=== PATIENT | male | born 1975 | race Caucasian/White ===

== ENCOUNTER 2020-12-02 03:44 | Observation (INO) ==
[2020-12-02] MEDS ORDERED: KETOROLAC TROMETHAMINE 15 MG/ML VIAL IV STA (04:04)
[2020-12-02] MEDS ORDERED: ONDANSETRON INJ 2 MG/ML 2 ML VIAL IV STA (04:04)
[2020-12-02] MEDS ORDERED: SODIUM CHLORIDE 0.9% 1000ML 1,000 ML IV ONE (04:04)
--- NOTE | 2020-12-02 04:13 | Emergency Department Note ---
History of Present Illness General Chief complaint: Abdominal Pain Stated complaint: SEVERE ABDOMINAL PAIN,DIARRHEA,VOMITING Time Seen by Provider: 12/02/20 03:54 Source: patient Mode of arrival: ambulatory Limitations: no limitations History of Present Illness Maximum Pain Intensity: 8 This patient is a 45-year-old male who presents to the emergency department for evaluation of abdominal pain. Patient states that 2 days ago, he developed some crampy, generalized abdominal pain. He developed some diarrhea the next day as well as some nausea. He states that yesterday, he felt okay throughout the day but overnight developed more abdominal pain. He has been very nauseous and had 2 episodes of vomiting this evening. He reports he feels an urgency to have a bowel movement, but is unable to have a bowel movement. He rates his discomfort an 8/10. He states the pain is crampy in nature. He has not taken any medication for the pain. He denies any urinary symptoms. Past Med/Surg History Medical History No significant past medical history Surgical History History of brain surgery removal of meningioma approx 2013 Social History Smoking Status: Never smoker Preferred Language: Citizen Of [place] Feels Safe at Home: Yes Review of Systems A total of 10 systems reviewed and were otherwise negative Physical Exam Vital Signs Vital Signs - 24 hr 12/02/20 03:51 12/02/20 03:58 12/02/20 04:04 Temperature 35.8 C L Temperature Source Temporal Artery Scan Pulse Rate 67 62 Pulse Rate from SpO2 Sensor Respiratory Rate 18 16 Respiratory Depth Normal Blood Pressure 129/81 127/85 Blood Pressure Mean 97 99 Pulse Oximetry 98 98 Oxygen Delivery Method Room Air Room Air Sepsis Recent Fever Within 48 Hours No Sepsis New/Unexplained Change in Mental Status N/A Sepsis Action Taken by Nursing No Action Required 12/02/20 04:33 12/02/20 04:40 12/02/20 04:50 Temperature Temperature Source Pulse Rate 60 67 63 Pulse Rate from SpO2 Sensor 64 Respiratory Rate 13 19 15 Respiratory Depth Blood Pressure Blood Pressure Mean Pulse Oximetry 95 Oxygen Delivery Method Sepsis Recent Fever Within 48 Hours Sepsis New/Unexplained Change in Mental Status Sepsis Action Taken by Nursing 12/02/20 05:00 12/02/20 05:10 12/02/20 05:38 Temperature Temperature Source Pulse Rate 69 77 86 Pulse Rate from SpO2 Sensor 69 76 Respiratory Rate 15 16 11 L Respiratory Depth Blood Pressure Blood Pressure Mean Pulse Oximetry 94 97 Oxygen Delivery Method Sepsis Recent Fever Within 48 Hours Sepsis New/Unexplained Change in Mental Status Sepsis Action Taken by Nursing 12/02/20 05:40 12/02/20 05:45 12/02/20 05:50 Temperature Temperature Source Pulse Rate 81 69 Pulse Rate from SpO2 Sensor 81 70 Respiratory Rate 15 15 Respiratory Depth Blood Pressure 122/78 Blood Pressure Mean 92 Pulse Oximetry 98 96 Oxygen Delivery Method Room Air Sepsis Recent Fever Within 48 Hours Sepsis New/Unexplained Change in Mental Status Sepsis Action Taken by Nursing 12/02/20 06:00 12/02/20 06:30 Temperature Temperature Source Pulse Rate 73 67 Pulse Rate from SpO2 Sensor 74 68 Respiratory Rate 18 14 Respiratory Depth Blood Pressure 118/77 Blood Pressure Mean 90 Pulse Oximetry 98 96 Oxygen Delivery Method Sepsis Recent Fever Within 48 Hours Sepsis New/Unexplained Change in Mental Status Sepsis Action Taken by Nursing VITALS: Vitals are noted on the nurse's note and reviewed by myself. Vital sig ns stable. GENERAL: This is a 45-year-old male, in no acute distress, well-developed well-nourished. SKIN: The skin was without rashes. EARS: External auditory canals clear, tympanic membranes pearly tello without erythema or effusion bilaterally. EYES: Pupils equal round and reactive to light and accommodation. MOUTH: Mucous membranes moist. Tonsils are not enlarged. Pharynx without erythema or exudate. NECK: Supple without nuchal rigidity. No lymphadenopathy. HEART: Regular rate and rhythm without murmurs gallops or rubs. LUNGS: Clear to auscultation bilaterally without wheezes, rales or rhonchi. ABDOMEN: Positive bowel sounds x 4. Abdomen is soft. There is moderate tenderness to palpation in the right upper quadrant and right lower quadrants. No guarding or rebound tenderness. NEURO: Patient was alert and oriented to person place and time. Course Administered Medications Discontinued Medications Sodium Chloride (Nss 1000ml) 1,000 mls @ 999 mls/hr IV .Q1H1M ONE Stop: 12/02/20 05:04 Last Infusion: 12/02/20 05:45 Dose: 0 mls/hr Documented by: [id number] Admin: 12/02/20 04:35 Dose: 999 mls/hr Documented by: [id number] Ioversol (Optiray 320 100ml) 94 ml IV ONCE ONE Stop: 12/02/20 04:55 Last Admin: 12/02/20 04:54 Dose: 94 ml Documented by: [id number] Ketorolac Tromethamine (Ketorolac Tromethamine 15 Mg/Ml Vial) 15 mg IV NOW STA Stop: 12/02/20 04:05 Last Admin: 12/02/20 04:10 Dose: 15 mg Documented by: [id number] Morphine Sulfate (Morphine Sulfate 10 Mg/Ml Carp/Vial) 6 mg IV NOW STA Stop: 12/02/20 04:43 Last Admin: 12/02/20 04:48 Dose: 6 mg Documented by: [id number] Ondansetron HCl (Ondansetron Inj 2 Mg/Ml 2 Ml Vial) 4 mg IV NOW STA Stop: 12/02/20 04:05 Last Admin: 12/02/20 04:24 Dose: 4 mg Documented by: [id number] Medical Decision Making Differential Diagnosis Appendicitis, testicular torsion, infections, diverticulitis, UTI, obstruction, mesenteric ischemia, aortic pathology, inflammatory bowel disease, renal colic, PUD, pancreatitis, biliary pathology, hernia, volvulus, constipation, as well as other pathologies. Home Medications Current Medication List: was personally reviewed by me Laboratory Data Attestation: I reviewed the patient's lab results. Result diagrams: 12/02/20 04:20 12/02/20 04:20 Lab Results 12/02/20 12/02/20 12/02/20 Range/Units 04:20 04:20 04:20 WBC 12.83 H (4.8-10.8) K/uL RBC 4.82 (4.7-6.1) M/uL Hgb 14.8 (14.0-18.0) g/dL Hct 42.9 (42-52) % MCV 89.0 (80-100) fL MCH 30.7 (25-34) pg MCHC 34.5 (32-36) g/dL RDW Std Deviation 44.6 (36.4-46.3) fL RDW Coeff of Adrien 13.6 (11.5-14.5) % Plt Count 289 (130-400) K/uL MPV 10.7 H (7.4-10.4) fL Immature Gran % (Auto) 0.2 % Neut % (Auto) 83.1 % Lymph % (Auto) 11.5 % [place] % (Auto) 4.1 % Eos % (Auto) 0.9 % Baso % (Auto) 0.2 % Neut # (Auto) 10.68 H (1.4-6.5) K/uL Lymph # (Auto) 1.48 (1.2-3.4) K/uL [place] # (Auto) 0.52 (0.11-0.59) K/uL Eos # (Auto) 0.11 (0-0.5) K/uL Baso # (Auto) 0.02 (0-0.2) K/uL Immature Gran # (Auto) 0.02 (0.00-0.02) K/uL Sodium 142 (136-145) mmol/L Potassium 3.7 (3.5-5.1) mmol/L Chloride 109 H (98-107) mmol/L Carbon Dioxide 25 (21-32) mmol/L Anion Gap 8.0 (3-11) BUN 11 (7-18) mg/dl Creatinine 0.88 (0.6-1.4) mg/dl Est Cr Clr Drug Dosing 101.2 ml/min Est GFR ( Amer) 121.9 ml/min Est GFR (Non-Af Amer) 105.2 ml/min BUN/Creatinine Ratio 12.8 (10-20) Glucose 134 H (70-99) mg/dl Calcium 8.8 (8.5-10.1) mg/dl Total Bilirubin 0.5 (0.2-1) mg/dl AST 23 (15-37) U/L ALT 56 (12-78) U/L Alkaline Phosphatase 101 (45-117) U/L Total Protein 7.8 (6.4-8.2) gm/dl Albumin 4.1 (3.4-5.0) gm/dl Globulin 3.7 (2.5-4.0) gm/dl Albumin/Globulin Ratio 1.1 (0.9-2) Lipase 176 (73-393) U/L Urine Color Yellow Urine Appearance Clear (Clear) Urine pH 5.5 (4.5-7.5) Ur Specific [place] 1.022 (1.000-1.030) Urine Protein 1+ H (Negative) Urine Glucose (UA) Negative (Negative) Urine Ketones Negative (Negative) Urine Blood Negative (Negative) Urine Nitrite Negative (Negative) Urine Bilirubin Negative (Negative) Urine Urobilinogen Negative (Negative) Ur Leukocyte Esterase Negative (Negative) Urine WBC (Auto) 1-5 (0-5) /hpf Urine RBC (Auto) 0-4 (0-4) /hpf U Hyaline Cast (Auto) 1-5 (0-5) /lpf U Epithel Cells (Auto) 0-5 (0-5) /lpf Urine Bacteria (Auto) Negative (Negative) Imaging Data Radiologist's Impression: Abdomen/Pelvis CT 12/02/20 04:14 CT OF THE ABDOMEN AND PELVIS WITH CONTRAST CLINICAL HISTORY: right sided abdominal pain, vomiting COMPARISON STUDY: None. TECHNIQUE: Following IV administration of 94 mL of Optiray, axial images of the abdomen and pelvis were obtained from the lung bases to the proximal femurs. Im ages were reviewed in the axial, sagittal, and coronal planes. IV contrast was administered without complication. Automated exposure control was utilized for the study. A dose lowering technique was utilized adhering to the principles of ALARA. CT DOSE: 472.31 mGycm FINDINGS: Lung bases are unremarkable. No pneumatosis, free air or portal venous gas is present. Liver, spleen, adrenal glands and pancreas are unremarkable. There is no biliary or pancreatic ductal dilatation. Several bilateral renal lesions measuring up to 1.2 cm are difficult to characterize given their small size but. These likely reflect cysts. There is no evidence for a bowel obstruction. The appendix is dilated, measuring 1 cm in caliber. There is minimal periappendiceal infiltration. No free air or abscess. There may be an appendicolith at the base of the appendix. No evidence for a bowel obstruction. Major vasculature is patent. There is no lymphadenopathy. No acute fracture or suspicious lesion is identified within the visualized skeletal structures. IMPRESSION: Findings consistent with acute appendicitis. No free air or abscess. ACT 112: Negative or not required by law. Electronically signed by: Bhavin Weir M.D. 12/02/2020 6:46 AM MDM Narrative Continuous project superintendent: Order was placed for continuous project superintendent. Patient was placed on the project superintendent. Patient was noted to be in normal sinus rhythm at an initial rate of 67 bpm. The patient is a 45-year-old male who presents today complaining of abdominal pain. Patient is very tender in the right lower quadrant on exam. Labs revealed a leukocytosis of 12,000. CT of the abdomen/pelvis was performed and showed findings consistent with acute appendicitis. Patient was treated with Toradol, morphine, Zofran and fluids and felt much better after this treatment. General surgery was consulted and will evaluate the patient for further care. Impression & Plan Acute appendicitis Discharge Plan Visit Data Chief Complaint: Abdominal Pain Stated Complaint: SEVERE ABDOMINAL PAIN,DIARRHEA,VOMITING ED Provider: Keira Abreu ED Midlevel Provider: Barbra Newton Discharge Problem: Acute appendicitis Forms Stand Alone Forms: [facility] Referrals Referrals: PCP,NO [Physician] -
[2020-12-02 04:34] LABS: Basophils # (auto) 0.02 K/uL (0-0.2); Basophils % (auto) 0.2 %; Eosinophils # (auto) 0.11 K/uL (0-0.5); Eosinophils % (auto) 0.9 %; Hematocrit (blood only) 42.9 % (42-52); Hemoglobin 14.8 g/dL (14.0-18.0); Immature Granulocytes # (auto) 0.02 K/uL (0.00-0.02); Immature Granulocytes % (auto) 0.2 %; Lymphocytes # (auto) 1.48 K/uL (1.2-3.4); Lymphocytes % (auto) 11.5 %; Mean Corpuscular Hemoglobin 30.7 pg (25-34); Mean Corpuscular Hgb Conc 34.5 g/dL (32-36); Mean Platelet Volume 10.7 fL (7.4-10.4); Monocytes # (auto) 0.52 K/uL (0.11-0.59); Monocytes % (auto) 4.1 %; Neutrophils # (auto) 10.68 K/uL (1.4-6.5); Neutrophils % (auto) 83.1 %; Platelet Count 289 K/uL (130-400); RDW Coefficient of Variation 13.6 % (11.5-14.5); RDW Standard Deviation 44.6 fL (36.4-46.3); Red Blood Count 4.82 M/uL (4.7-6.1); White Blood Count 12.83 K/uL (4.8-10.8)
[2020-12-02 04:38] LABS: Appearance Urine Clear (Clear); Bacteria Urine Automated Negative (Negative); Bilirubin Urine Negative (Negative); Blood Urine Negative (Negative); Color Urine Yellow; Epithelial Cell Urine Auto 0-5 /lpf (0-5); Glucose Urine UA Negative (Negative); Ketones Urine Negative (Negative); Leukocyte Esterase Urine Negative (Negative); Nitrite Urine Negative (Negative); Protein Urine 1+ (Negative); RBC Urine Automated 0-4 /hpf (0-4); Specific Gravity Urine 1.022 (1.000-1.030); Urobilinogen Urine Negative (Negative); pH Urine 5.5 (4.5-7.5)
[2020-12-02] MEDS ORDERED: MoRPHine SULFATE 10 MG/ML CARP/VIAL IV STA (04:42)
[2020-12-02 04:51] LABS: Albumin Level 4.1 gm/dl (3.4-5.0); BUN Creatinine Ratio 12.8 (10-20); Calcium 8.8 mg/dl (8.5-10.1); Creatinine Clr Calc Pharmacy 101.2 ml/min; Est GFR (African American) 121.9 ml/min; Est GFR (Non-African American) 105.2 ml/min; Potassium 3.7 mmol/L (3.5-5.1)
[2020-12-02 04:54] LABS: Albumin Globulin Ratio 1.1 (0.9-2); Bilirubin,Total 0.5 mg/dl (0.2-1); Globulin 3.7 gm/dl (2.5-4.0); Total Protein 7.8 gm/dl (6.4-8.2)
[2020-12-02] MEDS ORDERED: OPTIRAY 320 100ml IV ONE (04:54)
--- NOTE | 2020-12-02 06:47 | CT Scan Report ---
CT OF THE ABDOMEN AND PELVIS WITH CONTRAST CLINICAL HISTORY: right sided abdominal pain, vomiting COMPARISON STUDY: None. TECHNIQUE: Following IV administration of 94 mL of Optiray, axial images of the abdomen and pelvis we re obtained from the lung bases to the proximal femurs. Images were reviewed in the axial, sagittal, and coronal planes. IV contrast was administered without complication. Automated exposure control wa s utilized for the study. A dose lowering technique was utilized adhering to the principles of ALARA . CT DOSE: 472.31 mGycm FINDINGS: Lung bases are unremarkable. No pneumatosis, free air or portal venous gas is present. Live r, spleen, adrenal glands and pancreas are unremarkable. There is no biliary or pancreatic ductal dil atation. Several bilateral renal lesions measuring up to 1.2 cm are difficult to characterize given t heir small size but. These likely reflect cysts. There is no evidence for a bowel obstruction. The ap pendix is dilated, measuring 1 cm in caliber. There is minimal periappendiceal infiltration. No free air or abscess. There may be an appendicolith at the base of the appendix. No evidence for a bowel ob struction. Major vasculature is patent. There is no lymphadenopathy. No acute fracture or suspicious lesion is identified within the visualized skeletal structures. IMPRESSION: Findings consistent with acute appendicitis. No free air or abscess. ACT 112: Negative or not required by law. Electronically signed by: Bhavin Weir M.D. 12/02/2020 6:46 AM
[2020-12-02] MEDS ORDERED: MoRPHine SULFATE 4 MG/ML 1 ML CARP\\VIAL IV PRN (07:31)
--- NOTE | 2020-12-02 09:01 | History & Physical Report ---
Date of Service December 02, 2020 Assessment & Plan (1) Acute appendicitis: Plan: 45 yea-old make with 2 day history of abdominal pain with diarrhea and nausea and vomiting. CT scan showing dilated appendix at 1 cm with possible appendicolith at base. Mild leukocytosis of 12k. Abdomen is soft. Plan: Dr. Ledesma discussed CT scan findings with patient and recommends laparoscopic appendectomy. Patient informed of procedure, risks, and recovery and informed consent obtained Keep NPO 2 gms Ancef preop will stay overnight in observation and likely home tomorrow morning Dr. Ledesma has seen and examined pt, agrees with above. History of Present Illness Chief Complaint: Abdominal pain Primary Care Provider: Melecio Weller MD Lewis is a pleasant 45 year-old male who presented to emergency room due to abdominal pain with associated nausea and vomiting. Pain started Wednesday evening. States he had nausea and vomiting last night. Denies of any similar type of abdominal pain in the past. Denies of any fever, chills, chest pain, shortness of breath, difficulty breathing. Had some diarrhea on Wednesday evening as well. Pain improved yesterday during day but increased last evening. ER work-up included labs which showed mild leukocytosis of 12k and CT scan of abdomen and pelvis showing dilated appendix at 1 cm with mild periappendiceal inflammation and possible appendicolith at the base of the appendix. Past Med/Surg History Medical History No significant past medical history Surgical History History of brain surgery removal of meningioma approx 2013 Social History Smoking Status: Never smoker Preferred Language: Bhutanese Feels Safe at Home: Yes Review of Systems Review of Systems: All systems reviewed & are unremarkable except as noted in HPI & below Physical Exam Constitutional: WD/WN, vitals as above Respiratory: normal respiratory effort; no respiratory distress and no labored breathing Cardiovascular: Rate/Rhythm: regular rate and regular rhythm Gastrointestinal (Abdomen): Inspection/Auscultation: abdomen normal to inspection; abdomen not distended Percussion/Palpation: + abdomen tender (right side of abdomen) and abdomen soft; no guarding and abdomen not rigid Skin: no rashes, warm and dry Psychiatric: A+Ox3, euthymic affect Results & Data Results & Data ([facility]) Vital Signs (Past 12 Hours) Vital Signs Temp Pulse Pulse Resp BP BP Pulse Ox 12/02/20 07:00 70 18 121/74 97 12/02/20 06:30 67 14 118/77 96 12/02/20 06:00 73 18 98 12/02/20 05:50 69 15 122/78 96 12/02/20 05:40 81 15 98 12/02/20 05:38 86 11 L 12/02/20 05:10 77 16 97 12/02/20 05:00 69 15 94 12/02/20 04:50 63 15 95 12/02/20 04:40 67 19 12/02/20 04:33 60 13 12/02/20 04:04 98 12/02/20 03:58 62 16 127/85 12/02/20 03:51 35.8 C L 67 18 129/81 98 Laboratory Results 12/02/20 12/02/20 12/02/20 Range/Units 07:20 07:20 04:20 WBC (4.8-10.8) K/uL RBC (4.7-6.1) M/uL Hgb (14.0-18.0) g/dL Hct (42-52) % MCV (80-100) fL MCH (25-34) pg MCHC (32-36) g/dL RDW Std Deviation (36.4-46.3) fL RDW Coeff of Adrien (11.5-14.5) % Plt Count (130-400) K/uL MPV (7.4-10.4) fL Immature Gran % (Auto) % Neut % (Auto) % Lymph % (Auto) % [place] % (Auto) % Eos % (Auto) % Baso % (Auto) % Neut # (Auto) (1.4-6.5) K/uL Lymph # (Auto) (1.2-3.4) K/uL [place] # (Auto) (0.11-0.59) K/uL Eos # (Auto) (0-0.5) K/uL Baso # (Auto) (0-0.2) K/uL Immature Gran # (Auto) (0.00-0.02) K/uL Sodium (136-145) mmol/L Potassium (3.5-5.1) mmol/L Chloride (98-107) mmol/L Carbon Dioxide (21-32) mmol/L Anion Gap (3-11) BUN (7-18) mg/dl Creatinine (0.6-1.4) mg/dl Est Cr Clr Drug Dosing ml/min Est GFR ( Amer) ml/min Est GFR (Non-Af Amer) ml/min BUN/Creatinine Ratio (10-20) Glucose (70-99) mg/dl Calcium (8.5-10.1) mg/dl Total Bilirubin (0.2-1) mg/dl AST (15-37) U/L ALT (12-78) U/L Alkaline Phosphatase (45-117) U/L Total Protein (6.4-8.2) gm/dl Albumin (3.4-5.0) gm/dl Globulin (2.5-4.0) gm/dl Albumin/Globulin Ratio (0.9-2) Lipase (73-393) U/L Urine Color Yellow Urine Appearance Clear (Clear) Urine pH 5.5 (4.5-7.5) Ur Specific [place] 1.022 (1.000-1.030) Urine Protein 1+ H (Negative) Urine Glucose (UA) Negative (Negative) Urine Ketones Negative (Negative) Urine Blood Negative (Negative) Urine Nitrite Negative (Negative) Urine Bilirubin Negative (Negative) Urine Urobilinogen Negative (Negative) Ur Leukocyte Esterase Negative (Negative) Urine WBC (Auto) 1-5 (0-5) /hpf Urine RBC (Auto) 0-4 (0-4) /hpf U Hyaline Cast (Auto) 1-5 (0-5) /lpf U Epithel Cells (Auto) 0-5 (0-5) /lpf Urine Bacteria (Auto) Negative (Negative) COVID-19 Eval Order Covid19 at [facility] SARS-CoV-2 (PCR) Pending 12/02/20 12/02/20 Range/Units 04:20 04:20 WBC 12.83 H (4.8-10.8) K/uL RBC 4.82 (4.7-6.1) M/uL Hgb 14.8 (14.0-18.0) g/dL Hct 42.9 (42-52) % MCV 89.0 (80-100) fL MCH 30.7 (25-34) pg MCHC 34.5 (32-36) g/dL RDW Std Deviation 44.6 (36.4-46.3) fL RDW Coeff of Adrien 13.6 (11.5-14.5) % Plt Count 289 (130-400) K/uL MPV 10.7 H (7.4-10.4) fL Immature Gran % (Auto) 0.2 % Neut % (Auto) 83.1 % Lymph % (Auto) 11.5 % [place] % (Auto) 4.1 % Eos % (Auto) 0.9 % Baso % (Auto) 0.2 % Neut # (Auto) 10.68 H (1.4-6.5) K/uL Lymph # (Auto) 1.48 (1.2-3.4) K/uL [place] # (Auto) 0.52 (0.11-0.59) K/uL Eos # (Auto) 0.11 (0-0.5) K/uL Baso # (Auto) 0.02 (0-0.2) K/uL Immature Gran # (Auto) 0.02 (0.00-0.02) K/uL Sodium 142 (136-145) mmol/L Potassium 3.7 (3.5-5.1) mmol/L Chloride 109 H (98-107) mmol/L Carbon Dioxide 25 (21-32) mmol/L Anion Gap 8.0 (3-11) BUN 11 (7-18) mg/dl Creatinine 0.88 (0.6-1.4) mg/dl Est Cr Clr Drug Dosing 101.2 ml/min Est GFR ( Amer) 121.9 ml/min Est GFR (Non-Af Amer) 105.2 ml/min BUN/Creatinine Ratio 12.8 (10-20) Glucose 134 H (70-99) mg/dl Calcium 8.8 (8.5-10.1) mg/dl Total Bilirubin 0.5 (0.2-1) mg/dl AST 23 (15-37) U/L ALT 56 (12-78) U/L Alkaline Phosphatase 101 (45-117) U/L Total Protein 7.8 (6.4-8.2) gm/dl Albumin 4.1 (3.4-5.0) gm/dl Globulin 3.7 (2.5-4.0) gm/dl Albumin/Globulin Ratio 1.1 (0.9-2) Lipase 176 (73-393) U/L Urine Color Urine Appearance (Clear) Urine pH (4.5-7.5) Ur Specific [place] (1.000-1.030) Urine Protein (Negative) Urine Glucose (UA) (Negative) Urine Ketones (Negative) Urine Blood (Negative) Urine Nitrite (Negative) Urine Bilirubin (Negative) Urine Urobilinogen (Negative) Ur Leukocyte Esterase (Negative) Urine WBC (Auto) (0-5) /hpf Urine RBC (Auto) (0-4) /hpf U Hyaline Cast (Auto) (0-5) /lpf U Epithel Cells (Auto) (0-5) /lpf Urine Bacteria (Auto) (Negative) COVID-19 Eval Order SARS-CoV-2 (PCR) Diagnostic Findings CT OF THE ABDOMEN AND PELVIS WITH CONTRAST CLINICAL HISTORY: right sided abdominal pain, vomiting COMPARISON STUDY: None. TECHNIQUE: Following IV administration of 94 mL of Optiray, axial images of the abdomen and pelvis were obtained from the lung bases to the proximal femurs. Images were reviewed in the axial, sagittal, and coronal planes. IV contrast was administered without complication. Automated exposure control was utilized for the study. A dose lowering technique was utilized adhering to the principles of ALARA. CT DOSE: 472.31 mGycm FINDINGS: Lung bases are unremarkable. No pneumatosis, free air or portal venous gas is present. Liver, spleen, adrenal glands and pancreas are unremarkable. There is no biliary or pancreatic ductal dilatation. Several bilateral renal lesions measuring up to 1.2 cm are difficult to characterize given their small size but. These likely reflect cysts. There is no evidence for a bowel obstruction. The appendix is dilated, measuring 1 cm in caliber. There is minimal periappendiceal infiltration. No free air or abscess. There may be an appendicolith at the base of the appendix. No evidence for a bowel obstruction. Major vasculature is patent. There is no lymphadenopathy. No acute fracture or suspicious lesion is identified within the visualized skeletal structures. IMPRESSION: Findings consistent with acute appendicitis. No free air or abscess. Code Status & VTE Plan VTE Prophylaxis Plan VTE Prophylaxis will be ordered: Yes
[2020-12-02] MEDS ORDERED: fentaNYL citrate 100 MCG/2 ML VIAL ONE ×2 (10:45→12:26)
[2020-12-02] MEDS ORDERED: MIDAZOLAM HCL 1 MG/ML 2ML VIAL ONE (10:45)
[2020-12-02] MEDS ORDERED: cefOXitin 2,000 MG/60 ML BAG IV STA (11:10)
[2020-12-02] MEDS ORDERED: ACETAMINOPHEN 1000 MG/100 ML IV IV ONE (11:18)
--- NOTE | 2020-12-02 11:19 | History & Physical Bridge Note ---
Date of Service December 02, 2020 History & Physical Bridge Note I have examined the patient, reviewed the History & Physical and in the interval since the performance of the History & Physical I have noted the following changes of clinical significance: no changes noted
[2020-12-02] MEDS ORDERED: ONDANSETRON INJ 2 MG/ML 2 ML VIAL IV PRN ×2 (11:25→12:29)
[2020-12-02] MEDS ORDERED: HYDROmorphone INJ 2 MG/ML SYR/VIAL IV PRN (11:25)
[2020-12-02] MEDS ORDERED: BUPIVACAINE 0.5 % 5 MG/1 ML MPF 30ML VIAL ONE (11:25)
[2020-12-02] MEDS ORDERED: fentaNYL citrate 100 MCG/2 ML VIAL IV PRN (11:25)
[2020-12-02] MEDS ORDERED: LIDOCAINE 1% LOCAL 20 ML VIAL ONE (11:25)
[2020-12-02] MEDS ORDERED: ATROPINE SULFATE 0.1 MG/ML 10ML SYR IV PRN (11:25)
[2020-12-02] MEDS ORDERED: ePHEDrine sulfate 50 MG/ML AMP IV PRN (11:25)
--- NOTE | 2020-12-02 11:25 | Anesthesiology Consultation ---
Date of Service December 02, 2020 Assessment & Plan Consults Requested none ASA ASA1 Proposed Anesthesia Anesthesia Type: General Risk / Benefits Reviewed With: PT / POA / Parent / Guardian, Accepts Plan and Informed Consent Obtained History Surgery Operation Date: 12/02/20 11:55 Proposed Procedures p Laparoscopic Appendectomy - Elaina Ledesma MD Height/Weight Height: 5 ft 7 in Weight: 71.8 kg Allergies Allergy/AdvReac Type Severity Reaction Status Date / Time No Known Allergies Allergy Unverified 12/02/20 09:09 Medications Home Medications Medication Instructions Recorded Confirmed Last Taken No Known Home Medications 12/02/20 12/02/20 Unknown NPO Date Last Intake of Fluids: 12/01/20 Time Last Intake of Fluids: 22:00 Date Last Intake of Solids: 12/01/20 Time Last Intake of Solids: 18:00 Past Medical History Medical History No significant past medical history Exercise / Class Metabolic Activity II 4-5 Yardwork/Stairs/Walk up hill Past Surgical History Surgical History History of brain surgery removal of meningioma approx 2013 Past Anesthesia History No Hx of Anesthesia Complications and No Family Hx of Anesthesia Complications History of PONV No Hx of PONV and No Hx of Motion Sickness Social History Smoking Status: Never smoker Review of Systems denies fever/cough/ colds/ chest pain/ SOB/ FELI denies FELI Physical Exam Vital Signs Last Vital Signs Temp 36.7 C 12/02/20 10:38 Pulse 75 12/02/20 10:38 Resp 16 12/02/20 10:38 BP 113/87 12/02/20 10:38 Pulse Ox 97 12/02/20 10:38 ENMT Mouth: no TMJ abnormality and no dentition abnormality Thyromental Distance: > or= 3.5 Finger Breadths Mallampati Class: II Neck neck extension not limited Respiratory normal respiratory effort; no respiratory distress Auscultation: lungs clear to auscultation bilaterally Cardiovascular Rate/Rhythm: regular rate and regular rhythm Neurologic moves all extremities Psychiatric Orientation: alert and oriented x 3 Testing Laboratory Results 12/02/20 04:20 12/02/20 04:20 Urine Color Yellow 12/02/20 04:20 Urine Appearance Clear (Clear) 12/02/20 04:20 Urine pH 5.5 (4.5-7.5) 12/02/20 04:20 Ur Specific [place] 1.022 (1.000-1.030) 12/02/20 04:20 Urine Protein 1+ (Negative) H 12/02/20 04:20 Urine Glucose (UA) Negative (Negative) 12/02/20 04:20 Urine Ketones Negative (Negative) 12/02/20 04:20 Urine Nitrite Negative (Negative) 12/02/20 04:20 Ur Leukocyte Esterase Negative (Negative) 12/02/20 04:20 Urine WBC (Auto) 1-5 /hpf (0-5) 12/02/20 04:20 Urine RBC (Auto) 0-4 /hpf (0-4) 12/02/20 04:20 U Hyaline Cast (Auto) 1-5 /lpf (0-5) 12/02/20 04:20 U Epithel Cells (Auto) 0-5 /lpf (0-5) 12/02/20 04:20 Urine Bacteria (Auto) Negative (Negative) 12/02/20 04:20
[2020-12-02] MEDS ORDERED: ROCURONIUM BROMIDE 10 MG/ML 5 ML VIAL IV ONE ×4 (12:01)
[2020-12-02] MEDS ORDERED: ONDANSETRON INJ 2 MG/ML 2 ML VIAL ONE (12:01)
[2020-12-02] MEDS ORDERED: DEXAMETHASONE SOD INJ 4 MG/ML VIAL ONE (12:01)
[2020-12-02] MEDS ORDERED: PROPOFOL IV EMULSION 10 MG/ML 20 ML VIAL IV ONE (12:01)
[2020-12-02] MEDS ORDERED: LIDOCAINE 2% 2 ML VIAL/AMP(20MG/ML) INFIL ONE (12:01)
[2020-12-02] MEDS ORDERED: BACITRACIN OINT 15 GM TUBE ONE (12:16)
--- NOTE | 2020-12-02 12:16 | Post Operative Brief Note ---
Immediate Post Op Note v1 Date of Surgery December 02, 2020 Pre & Post Diagnosis Operation Date: 12/02/20 11:55 Pre-Op Diagnosis: Acute Appendicitis Post-Op Diagnosis: Acute Appendicitis I identified the patient and participated in the time-out.: Yes Procedure Operation Date: 12/02/20 11:55 Actual Procedures p Laparoscopic Appendectomy(Not Applicable) - Elaina Ledesma MD Surgeon Elaina Ledesma MD Excellence Leader DENISE Chavez Estimated Blood Loss 10 Findings Consistent with Post-Op Diagnosis Fluids 600ml Specimens appendix Anesthesia Type General Complications none Disposition Accompanied Patient To Recovery: Yes
[2020-12-02] MEDS ORDERED: HYDROmorphone INJ 1 MG/ML SYRINGE IV PRN (13:38)
[2020-12-02] MEDS ORDERED: oxyCODONE/ACETAMINOPHEN 5mg/325mg TAB PO PRN (13:38)
--- NOTE | 2020-12-02 14:00 | Operative Report (OR) ---
DATE OF SURGERY: 12/02/2020 PREOPERATIVE DIAGNOSIS: Acute appendicitis. POSTOPERATIVE DIAGNOSIS: Acute appendicitis. OPERATION: Laparoscopic appendectomy. SURGEON: Elaina Ledesma MD. FIRE SPRINKLER INSTALLER: Saadia Nunez PA-C. ANESTHESIA: General. ESTIMATED BLOOD LOSS: About 10 mL. FINDINGS: Acute appendicitis. COMPLICATIONS: None. INDICATIONS FOR THE PROCEDURE: This is a 45-year-old gentleman who presented with 2 days history of right lower quadrant pain and the patient had a CT scan diagnosis of acute appendicitis. I recommended to do a laparoscopic appendectomy, possible open. I did talk to the patient about the benefit, risk, alternate procedure. I indicated the risks may include, but not limited to, such as bleeding, infection, abscess, injury to other organs and bowel obstruction, base on this is a laparoscopic procedure and possibly could not see the appendicolith. The patient understands. He signed informed consent and I answered all questions. DETAILS OF PROCEDURE: After we identified the patient and verified the procedure, we brought the patient to the OR, put the patient in the supine position on the OR table. The patient received SCD on bilateral legs to prevent DVT. Also, patient received 2 grams of cefoxitin IV for prophylactic antibiotic. The patient received general anesthesia without difficulty. His abdomen and pelvic area was prepped and draped in routine sterile fashion. After time-out, I injected local anesthesia by using 1% lidocaine mixed with 0.5% Marcaine just above the umbilicus, then I made a small incision just above the umbilicus, opened fascia, opened peritoneum. Under direct vision, put a Whitney trocar in, connected to CO2 to create pneumoperitoneum, flow rate at 6 liters per minute, pressure not more than 14 mmHg. Once we got a nice pneumoperitoneum, we put the camera in, looked around the abdomen and it showed normal finding on the small bowel and large bowel; however, the appendix is enlarged with inflammation, confirmed diagnosis of acute appendicitis. Appendix is enlarged in size about 1 cm in diameter. Once we confirmed the diagnosis of acute appendicitis, I put another two 5 mm trocars on the left lower quadrant area. Once all the trocars in, we used the grasper to hold the appendix and used the Harmonic to take down the appendiceal. Rechecked, no active bleeding. Then, I used a 45 mm Endo-CLAUS stapler for transection on the base of appendix. Rechecked, no active bleeding. Staple line intact. At this moment, we could not see any of the stone inside the base of appendix. Then, we removed the appendix through the catch bag. Then, we reinserted the Whitney trocar in, connected to CO2 to create pneumoperitoneum, again looked around the abdomen, no active bleeding, no leak on the staple line. Then, I removed all trocars under direct vision. No active bleeding from the trocar sites. Pneumoperitoneum was released, then I closed the umbilical incision fascial layer by using 0 Vicryl [id number] x2, closed subcutaneous layer by using 2-0 Vicryl interruptedly, closed skin by using 4-0 Vicryl continuous running, closed another two 5 mm trocar site of skin only by using 4-0 Vicryl. Then, we put the dressing on. The patient tolerated the procedure well. All instrument, needle and sponge counts were correct x2 at the end of the case. The patient was transferred to recovery room in stable condition. After the procedure, I did talk to the patient about the OR finding and the procedure we did, the patient understands. The assistant professor of anthropology, Saadia, was necessary for this procedure. Her role was to hold the camera, exposure and retraction. Job ID: [id number] [facility]
--- NOTE | 2020-12-02 14:25 | Anesthesiology Progress Note ---
Date of Service December 02, 2020 Anesthesia Post Procedure Vital Signs Vital Signs: Temp Pulse Pulse Pulse Resp BP BP 12/02/20 14:00 36.7 C 76 12 116/69 12/02/20 13:45 36.7 C 78 12 115/71 12/02/20 13:35 36.7 C 73 12 116/73 12/02/20 13:20 36.7 C 81 15 118/74 12/02/20 13:10 36.7 C 81 10 L 119/76 12/02/20 13:00 85 10 L 115/76 12/02/20 12:50 89 8 L 106/59 L 12/02/20 12:43 36.8 C 88 16 103/64 12/02/20 10:38 36.7 C 75 16 113/87 12/02/20 09:00 71 18 119/80 12/02/20 07:00 70 18 121/74 12/02/20 06:30 67 14 118/77 12/02/20 06:00 73 18 12/02/20 05:50 69 15 122/78 12/02/20 05:40 81 15 12/02/20 05:38 86 11 L 12/02/20 05:10 77 16 12/02/20 05:00 69 15 12/02/20 04:50 63 15 12/02/20 04:40 67 19 12/02/20 04:33 60 13 12/02/20 04:04 12/02/20 03:58 62 16 127/85 12/02/20 03:51 35.8 C L 67 18 129/81 Pulse Ox 12/02/20 14:00 100 12/02/20 13:45 100 12/02/20 13:35 100 12/02/20 13:20 99 12/02/20 13:10 100 12/02/20 13:00 100 12/02/20 12:50 99 12/02/20 12:43 98 12/02/20 10:38 97 12/02/20 09:00 97 12/02/20 07:00 97 12/02/20 06:30 96 12/02/20 06:00 98 12/02/20 05:50 96 12/02/20 05:40 98 12/02/20 05:38 12/02/20 05:10 97 12/02/20 05:00 94 12/02/20 04:50 95 12/02/20 04:40 12/02/20 04:33 12/02/20 04:04 98 12/02/20 03:58 12/02/20 03:51 98 Pain Intensity Abdomen: Pain Intensity: 0 Transfer of Care Handoff Completed per policy Notes Mental Status: alert / awake / arousable and participated in evaluation Patient Amnestic to Procedure: Yes Nausea / Vomiting: adequately controlled Pain: adequately controlled Airway Patency, RR, SpO2: stable & adequate BP & HR: stable & adequate Hydration State: stable & adequate Anesthetic Complications: no major complications apparent and Pt Satisfied with anesthetic care
[2020-12-02] MEDS ORDERED: ACETAMINOPHEN 325 MG TAB PO PRN (14:50)
[2020-12-02] MEDS: LACTATED RINGER'S 1,000 ML IV SCH (17:28)
[2020-12-02 18:05] LABS: Hematocrit (blood only) 40.4 % (42-52); Hemoglobin 13.7 g/dL (14.0-18.0); Immature Granulocytes # (auto) 0.02 K/uL (0.00-0.02); Immature Granulocytes % (auto) 0.2 %; Lymphocytes # (auto) 0.62 K/uL (1.2-3.4); Lymphocytes % (auto) 5.7 %; Mean Corpuscular Hemoglobin 29.8 pg (25-34); Mean Corpuscular Hgb Conc 33.9 g/dL (32-36); Mean Corpuscular Volume 87.8 fL (80-100); Mean Platelet Volume 10.7 fL (7.4-10.4); Monocytes # (auto) 0.05 K/uL (0.11-0.59); Monocytes % (auto) 0.5 %; Neutrophils # (auto) 10.14 K/uL (1.4-6.5); Neutrophils % (auto) 93.6 %; Platelet Count 273 K/uL (130-400); RDW Coefficient of Variation 13.6 % (11.5-14.5); White Blood Count 10.83 K/uL (4.8-10.8)
[2020-12-03] MEDS: LACTATED RINGER'S 1,000 ML IV SCH (06:11)
[2020-12-03 07:50] LABS: Hematocrit (blood only) 38.4 % (42-52); Immature Granulocytes # (auto) 0.02 K/uL (0.00-0.02); Immature Granulocytes % (auto) 0.2 %; Lymphocytes # (auto) 1.06 K/uL (1.2-3.4); Mean Corpuscular Hemoglobin 29.6 pg (25-34); Mean Corpuscular Hgb Conc 33.9 g/dL (32-36); Mean Corpuscular Volume 87.5 fL (80-100); Mean Platelet Volume 10.3 fL (7.4-10.4); Monocytes # (auto) 0.77 K/uL (0.11-0.59); Neutrophils # (auto) 7.78 K/uL (1.4-6.5); Neutrophils % (auto) 80.8 %; Platelet Count 251 K/uL (130-400); RDW Coefficient of Variation 13.6 % (11.5-14.5); RDW Standard Deviation 43.9 fL (36.4-46.3); Red Blood Count 4.39 M/uL (4.7-6.1); White Blood Count 9.63 K/uL (4.8-10.8)
--- NOTE | 2020-12-03 09:39 | Discharge Summary ---
Date of Service December 03, 2020 Admission HPI Per Admitting Provider Lewis is a pleasant 45 year-old male who presented to emergency room due to abdominal pain with associated nausea and vomiting. Pain started Wednesday evening. States he had nausea and vomiting last night. Denies of any similar type of abdominal pain in the past. Denies of any fever, chills, chest pain, shortness of breath, difficulty breathing. Had some diarrhea on Wednesday evening as well. Pain improved yesterday during day but increased last evening. ER work-up included labs which showed mild leukocytosis of 12k and CT scan of abdomen and pelvis showing dilated appendix at 1 cm with mild periappendiceal i nflammation and possible appendicolith at the base of the appendix. Principal Diagnosis Acute appendicitis Discharge Exam Constitutional WD/WN, vitals as above Respiratory normal respiratory effort; no respiratory distress and no labored breathing Gastrointestinal (Abdomen) Inspection/Auscultation: abdomen normal to inspection; abdomen not distended Percussion/Palpation: + abdomen tender (at incision sites, appropriate postop) and abdomen soft; no guarding and abdomen not rigid Skin no rashes, warm and dry + incision (incisions covered with clean/dry dressings) Psychiatric A+Ox3, euthymic affect Discharge Data Allergies Allergy/AdvReac Type Severity Reaction Status Date / Time No Known Allergies Allergy Unverified 12/02/20 09:09 Procedures Performed Operation Date: 12/02/20 11:55 Actual Procedures p Laparoscopic Appendectomy(Not Applicable) - Elaina Ledesma MD Ordered Studies 12/02/20 04:14 CT abd pelvis IV con only Urgent Hospital Course (1) Acute appendicitis: Patient was taken to operating room for laparoscopic appendectomy from ED by Dr. Ledesma. Patient found to have acute appendicitis without perforation or abscess. Patient tolerated procedure well without any difficulties. Transferred to recovery then to medical/surgical floor for postoperative care. Diet advanced to clear liquids, PO Percocet and Tylenol prn pain, activity as tolerated, IV Cefoxitin for postop antibiotic course, and incentive spirometry a nd SCDS were ordered as well. POD # 1, afebrile, vss, postop pain mild to moderate at incisions, some tenderness with walking. No fever or chills. Urinating without difficulty. Patient was stable for discharge on POD # 1 . Hospital course uneventful. Total Time Total Time Spent Total Time Spent (In Minutes): 20 Total Time Includes: Examination of the Patient, Discharge Planning and Medication Reconciliation Discharge Plan Discharge Items Patient Disposition: Home - Self-Care Reason For Visit: SEVERE ABDOMINAL PAIN,DIARRHEA,VOMITING Discharge Diagnosis: acute appendicitis Activity: Per Instructions section Non-emergency contact: Surgeon Call non-emergency contact if: you have any medication questions, your pain is not controlled, your pain is worsening, your pain is concerning for you, you have a fever, your temperature is above 101, your wound has increased redness, your wound has increased drainage and your wound pain has increased Follow-up/Referrals: PCP,NO [Physician] - Diet: Regular Addtl Attending Provider Instructions: Post-Surgical ~Discharge Instructions Activity Recommendations: - lifting limitation: (25 pounds for 4 weeks), - exercise/sex/sports limit: (nonstrenuous for 2 weeks), - driving or machine use limit: (no driving while taking narcotic pain medication), - Shower/bathe limit: (may shower beginning Wednesday) - You may return to work if you are feeling well however no heavy lifting over 25 pounds and not a lot of bending over or twisting and turning to allow your incisions to heal. Diet: - Resume previous diet , advance diet slowly as tolerated SPECIAL CARE INSTRUCTIONS: - May shower on Wednesday. Keep dressing dry in meantime. May wash hair and sponge bath. Wednesday, remove outer dressings and let water run over area and pat dry. - Leave steri strips on for one week and then remove, they may fall off on their own that is okay. - Call the surgeon's office with any questions or concerns - - (ex. temperature higher than 101 degrees F, excessive bleeding or pain). MEDICATIONS: - Resume previous medications unless instructed otherwise by your surgeon. - May alternate extra strength Tylenol and Ibuprofen as needed for mild to moderate pain -650 mg Tylenol every 6 hours as needed - Ibuprofen 600 mg every 6 hours as needed (take with food) - Percocet 1 every 6 hours, as needed for severe pain - You may want to take [id number] stool softener (Colace) daily while taking narcotic pain medication to prevent constipation. FOLLOW UP VISIT: - If not already scheduled, please call the office to schedule a two week follow-up appointment. Office number Pending Studies at Discharge: Yes Stand-Alone Forms: My [facility] [employer], Smoking Cessation Medications and DC Order Prescriptions: New oxycodone-acetaminophen [Percocet] 5-325 mg tablet 1 tab PO Q6H PRN (Reason: pain (scale score 7-10)) Qty: 5 RF: 0 Discharge Orders: Discharge Order (Routine); Ordered 12/03/20 Ordered By: Saadia Nunez Admission Data Admit Date/Time: 12/02/20 12:29 Attending Provider: Elaina Ledesma Admit Provider: Elaina Ledesma Primary Care Provider: Melecio Weller
--- NOTE | 2020-12-04 19:39 | Electrocardiogram Report ---
Test Reason : Blood Pressure : / mmHG Vent. Rate : 063 BPM Atrial Rate : 063 BPM P-R Int : 166 ms QRS Dur : 092 ms QT Int : 408 ms P-R-T Axes : 062 074 068 degrees QTc Int : 417 ms Normal sinus rhythm Normal ECG No previous ECGs available Confirmed by Destin Deras ([id number]) on 12/04/2020 7:38:56 PM Referred By: REFERRED SELF Confirmed By:Destin Deras
== END 2020-12-03 11:05 | disposition home or self-care (01) ==
LOC: ED 03:44 → PACUINP 10:29 → OR 10:29 → 3N 17:16
DX: K35.80 Unspecified acute appendicitis